=== PATIENT | female | born 1980 | race Caucasian/White ===

== ENCOUNTER 2020-06-16 06:06 | Inpatient (IN) ==
[2020-06-16] MEDS ORDERED: FAMOTIDINE 20 MG/2 ML VIAL IV PRN (06:26)
[2020-06-16] MEDS ORDERED: ceFAZolin 2,000 MG in PREMIX 1 EACH IV ONE (06:26)
[2020-06-16] MEDS ORDERED: CITRIC ACID/SODIUM CITRATE 30 ML UDCUP PO PRN (06:26)
[2020-06-16] MEDS ORDERED: OXYTOCIN/LR 20 UNIT/1,000 ML BAG IV ONE ×2 (06:28→14:09)
[2020-06-16 06:53] LABS: Basophils % 0.4 % (0.0-0.8); Eosinophils # 0.1 10*3/uL (0.0-0.87); Eosinophils % 0.9 % (0.00-10.9); Hematocrit 36.2 VOL% (35.7-47.0); Hemoglobin 12.4 GM/DL (12.0-16.0); Immature Granulocytes % 0.7 %; Immature Granulocytes Absolute 0.07 #; Lymphocytes # 2.1 10*3/uL (1.4-4.0); Lymphocytes % 20.8 % (21.3-54.2); Mean Corpuscular HGB Conc 34.3 GM/DL (32-36); Mean Corpuscular Volume 92.1 FL (87-102); Mean Platelet Volume 11.7 FL (9.6-12.0); Monocytes % 6.5 % (1.7-12.7); Neutrophils % 70.7 % (38.7-73.9); Platelet Count 145 T/CUMM (130-400); Red Blood Count 3.93 MC/CUMM (3.8-5.5); Red Cell Distribution Width 13.4 % (9.3-17.3); White Blood Count 10.2 T/CUMM (4-12)
[2020-06-16 07:11] LABS: Alanine Aminotransferase 22 U/L (13-56); Albumin 2.4 G/DL (3.4-5.0); Alkaline Phosphatase 288 U/L (45-117); Aspartate Amino Transferase 22 U/L (0-37); Bilirubin,Total < 0.39 MG/DL (0.2-1.0); Blood Urea Nitrogen 11 MG/DL (7-18); Calcium 9.4 MG/DL (8.5-10.1); Estimated Glom Filtration Rate 108 ML/MIN; Glucose 83 MG/DL (74-106); Osmolality,Calculated 270.8 MOS/KG (273-304); Total Protein 7.6 G/DL (6.4-8.3)
[2020-06-16 07:16] LABS: Hypochromasia 1+; Microcytosis 1+; Platelet Estimate Adequate
[2020-06-16] MEDS: LACTATED RINGERS 1,000 ML IV SCH (08:45)
[2020-06-16] MEDS ORDERED: miSOPROStoL 200 MCG TABLET ONE (08:47)
[2020-06-16] MEDS ORDERED: TRANEXAMIC ACID 1,000 MG/10 ML VIAL ONE (08:47)
[2020-06-16] MEDS ORDERED: METHYLERGONOVINE 0.2 MG/1 ML AMP ONE (08:48)
[2020-06-16] MEDS ORDERED: CARBOPROST TROMETHAMINE 250 MCG/ML AMP IM ONE (08:48)
[2020-06-16 09:42] LABS: RPR Confirm - Less than 1 yr NONREACTIVE (Nonreactive)
[2020-06-16 10:55] LABS: Bilirubin,Urine Negative (Negative); Blood, Urine Negative (Negative); Glucose,Urine (UA) Negative (Negative); Ketones,Urine Negative (Negative); Nitrite,Urine Negative (Negative); Protein,Urine Negative; RBC,Urine <1 /HPF (0-4); Urine Appearance CLEAR (Clear); Urine Color Straw (Yellow); Urine Specific Gravity 1.009 (1.001-1.035); Urine Urobilinogen < 2.0 EU/DL (0.2-1.0); WBC,Urine <1 /HPF (0-6)
[2020-06-16 11:06] LABS: Cord Arterial Blood HCO3 21.1 MMOL/L
[2020-06-16 11:07] LABS: Cord Venous Blood HCO3 23.1 MMOL/L; Cord Venous Blood PCO2 37.1 MMHG; Cord Venous Blood PO2 19.1 MMHG
[2020-06-16] MEDS ORDERED: fentaNYL 100 MCG/2 ML VIAL ONE (11:22)
[2020-06-16] MEDS ORDERED: MORPHINE 10 MG/10 ML VIAL ONE (11:22)
[2020-06-16] MEDS ORDERED: BUPIVACAINE SPINAL 0.75% 2 ML AMP SPINAL ONE (11:24)
[2020-06-16] MEDS ORDERED: MIDAZOLAM 2 MG/2 ML VIAL ONE (11:24)
[2020-06-16] MEDS ORDERED: ONDANSETRON 4 MG/2 ML VIAL ONE (11:24)
[2020-06-16] MEDS ORDERED: PHENYLEPHRINE 10 MG/1 ML VIAL IV ONE (11:29)
[2020-06-16] MEDS ORDERED: SODIUM CHLORIDE 0.9% 100 ML IV ONE (11:29)
[2020-06-16] MEDS ORDERED: ACETAMINOPHEN 1,000 MG/100 ML VIAL IV ONE (11:29)
[2020-06-16] MEDS ORDERED: diphenhydrAMINE 50 MG/1 ML VIAL IV PRN (13:40)
[2020-06-16] MEDS ORDERED: HYDROmorphone 2 MG/1 ML VIAL IV PRN (13:40)
[2020-06-16] MEDS ORDERED: hydrOXYzine HCL 25 MG/1 ML VIAL IM PRN (13:40)
[2020-06-16] MEDS ORDERED: ONDANSETRON 4 MG/2 ML VIAL IV PRN ×2 (13:40→14:09)
[2020-06-16] MEDS ORDERED: ACETAMINOPHEN 325 MG TABLET PO PRN (14:09)
[2020-06-16] MEDS ORDERED: RHO(D) IMMUNE GLOBULIN 300 MCG SYRINGE IM ONE (14:09)
[2020-06-16] MEDS ORDERED: IBUPROFEN 800 MG TABLET PO PRN (14:09)
[2020-06-16] MEDS ORDERED: SIMETHICONE CHEW 80 MG TABLET PO PRN (14:09)
[2020-06-16] MEDS ORDERED: oxyCODONE/ACETAMINOPHEN 5-325 MG TABLET PO PRN (14:11)
[2020-06-16] MEDS ORDERED: LACTATED RINGERS 1,000 ML IV SCH (14:30)
[2020-06-16] MEDS ORDERED: ceFAZolin 1,000 MG in SYRINGE 1 EACH IV SCH (14:30)
[2020-06-16] MEDS ORDERED: MORPHINE 4 MG/1 ML VIAL IV PRN (15:41)
[2020-06-16] MEDS ORDERED: ACETAMINOPHEN INJ 1,000 MG in PREMIX 1 EACH IV ONE (16:00)
[2020-06-16] MEDS: KETOROLAC 30 MG/1 ML VIAL IV PRN (16:05)
[2020-06-16] MEDS: ceFAZolin 1,000 MG in SYRINGE 1 EACH IV SCH (17:46)
[2020-06-16] MEDS ORDERED: diphenhydrAMINE CAP 25 MG CAPSULE PO PRN (17:54)
[2020-06-16 19:06] LABS: Basophils # 0.1 10*3/uL (0.0-0.2); Basophils % 0.5 % (0.0-0.8); Eosinophils % 0.3 % (0.00-10.9); Hematocrit 34.4 VOL% (35.7-47.0); Hemoglobin 11.7 GM/DL (12.0-16.0); Immature Granulocytes % 0.6 %; Immature Granulocytes Absolute 0.07 #; Lymphocytes # 1.9 10*3/uL (1.4-4.0); Lymphocytes % 15.8 % (21.3-54.2); Mean Corpuscular Volume 90.3 FL (87-102); Mean Platelet Volume 11.3 FL (9.6-12.0); Monocytes % 5.7 % (1.7-12.7); Neutrophils % 77.1 % (38.7-73.9); Platelet Count 118 T/CUMM (130-400); Red Blood Count 3.81 MC/CUMM (3.8-5.5); Red Cell Distribution Width 13.6 % (9.3-17.3); White Blood Count 12.1 T/CUMM (4-12)
[2020-06-16] MEDS: DOCUSATE SODIUM 100 MG CAPSULE PO SCH (20:19)
[2020-06-16] MEDS ORDERED: HydrOXYzine PAMOATE 25 MG CAPSULE PO PRN (20:22)
[2020-06-17] MEDS: KETOROLAC 30 MG/1 ML VIAL IV PRN ×3 (00:39→11:26)
[2020-06-17] MEDS: ceFAZolin 1,000 MG in SYRINGE 1 EACH IV SCH (00:40)
[2020-06-17 06:57] LABS: Basophils % 0.4 % (0.0-0.8); Eosinophils # 0.1 10*3/uL (0.0-0.87); Hematocrit 31.7 VOL% (35.7-47.0); Hemoglobin 10.9 GM/DL (12.0-16.0); Immature Granulocytes % 0.5 %; Immature Granulocytes Absolute 0.04 #; Lymphocytes # 1.8 10*3/uL (1.4-4.0); Lymphocytes % 21.6 % (21.3-54.2); Mean Corpuscular HGB Conc 34.4 GM/DL (32-36); Mean Corpuscular Volume 91.4 FL (87-102); Mean Platelet Volume 11.6 FL (9.6-12.0); Monocytes % 5.1 % (1.7-12.7); Neutrophils % 71.4 % (38.7-73.9); Platelet Count 103 T/CUMM (130-400); Red Blood Count 3.47 MC/CUMM (3.8-5.5); Red Cell Distribution Width 14.1 % (9.3-17.3); White Blood Count 8.4 T/CUMM (4-12)
[2020-06-17 07:17] LABS: Hypochromasia 1+; Microcytosis 1+; Platelet Estimate Decreased
[2020-06-17] MEDS: DOCUSATE SODIUM 100 MG CAPSULE PO SCH ×3 (08:32→21:07)
[2020-06-17] MEDS: MULTIVITAMIN (PRENATAL) TABLET PO SCH (08:32)
[2020-06-17] MEDS: MAGNESIUM HYDROXIDE SUSP 30 ML UDCUP PO PRN ×2 (08:32→19:40)
[2020-06-17] MEDS: KETOROLAC 30 MG/1 ML VIAL IV SCH ×2 (17:55→23:55)
[2020-06-18] MEDS: KETOROLAC 30 MG/1 ML VIAL IV SCH ×2 (06:18→12:55)
[2020-06-18] MEDS: DOCUSATE SODIUM 100 MG CAPSULE PO SCH (08:56)
[2020-06-18] MEDS: MULTIVITAMIN (PRENATAL) TABLET PO SCH (08:56)
[2020-06-18 09:36] VITALS: BP 115/67
== END 2020-06-18 14:10 | disposition home or self-care (01) | DRG 787 ==
LOC: N.LD 06:06 → N.OB 16:46
PROVIDERS: ADMIT Obstetrics & Gynecology; ATTEND Obstetrics & Gynecology
PROC: LDCSECT (ICD-10-PCS; 2020-06-16 09:00)